=== PATIENT | female | born 1985 | race Caucasian/White ===

== ENCOUNTER 2023-05-28 20:51 | Emergency (ER) | payer OTHER ==
[2023-05-28] MEDS ORDERED: Ketorolac Tromethamine 30 MG/ML VIAL ONE (22:33)
[2023-05-28 23:22] LABS: #Basophils 0.1 thou/uL (0.0-0.2); #Eosinphils 0.1 thou/uL (0.0-0.7); #Monocytes 0.7 thou/uL (0.11-0.59); #Neutrophils 9.9 thou/uL (1.40-6.50); %Basophils 0.7 % (0.0-1.0); %Eosinophils 1.1 % (0.0-10.0); %Lymphocytes 12.5 % (21.0-51.0); %Monocytes 5.3 % (0.0-10.0); Hematocrit 38.5 % (36.0-47.0); Hemoglobin 12.9 g/dL (12.0-16.0); Mean Corpuscular HGB CONC 33.5 g/dL (32.0-36.0); Mean Corpuscular Hemoglobin 31.3 pg (27.0-31.0); Mean Corpuscular Volume 93.4 fl (78.0-98.0); Mean Platelet Volume 9.9 fL (7.4-10.4); Platelet Count 309 10x3/uL (130-400); RBC Distribution Width 12.8 % (11.5-14.5); Red Blood Cell (RBC) Count 4.12 mill/uL (4.20-5.40); White Blood Cell (WBC) Count 12.3 10x3/uL (4.8-10.8)
[2023-05-28 23:32] LABS: BHCG - Serum Negative (NEGATIVE); Pregs Control Background? CLEAR/WHITE (CLR/WHITE); Pregs Control Bar Appear? YES (CONTROL BAR)
[2023-05-28 23:49] LABS: Anion Gap 9 mmol/L (10-20); BUN (Urea Nitrogen) 8 mg/dL (7.0-18.7); Calc. Creatinine Clearance 0 mL/min (70-130); Carbon Dioxide 28 mmol/L (22-29); Chloride 106 mmol/L (98-107); Estimated GFR 105; Glucose 103 mg/dL (70-105); Potassium 3.5 mmol/L (3.5-5.1); Sodium 139 mmol/L (136-145)
[2023-05-29 01:17] LABS: Bacteria/HPF None Seen HPF (None Seen); Bilirubin Negative (Negative); Blood, Urine Negative (Negative); CAUTI Indications for Culture Dysuria,urgency,freq; Clarity Extra Turbid (Clear); Glucose, Urine (Dipstick) Normal (Negative); Ketone, Urine Negative (Negative); Leukocyte Negative Leu/uL (Negative); Nitrite Negative (Negative); Protein, Urine (Dipstick) 70 mg/dL (Neg-Trace); RBC/HPF 0-3 HPF (0-3); Specific Gravity, Urine 1.023 (1.002-1.036); Squamous Epithelial 0-3 HPF (0-3); WBC/HPF 0-3 HPF (0-3)
[2023-05-29 01:21] LABS: Urine Culture Reflex No No
== END 2023-05-29 01:38 | disposition home or self-care (01) ==
LOC: ERS 20:51
DX: K08.89 Other specified disorders of teeth and supporting structures (principal); E86.0 Dehydration; F17.210 Nicotine dependence, cigarettes, uncomplicated
CPT/HCPCS: 36415; 80048; 81001; 83605; 84703; 85025; 96361; 96374; J1885

== ENCOUNTER 2023-09-20 19:57 | Emergency (ER) | payer OTHER | END 2023-09-21 00:29 | disposition home or self-care (01) | LOC: ERS 19:57 | DX: J32.0 Chronic maxillary sinusitis (principal); L29.9 Pruritus, unspecified; F17.210 Nicotine dependence, cigarettes, uncomplicated | CPT/HCPCS: 70450 ==

== ENCOUNTER 2023-10-22 01:46 | Emergency (ER) | payer OTHER ==
[2023-10-22] MEDS ORDERED: Acetaminophen 500 MG TAB ONE (01:55)
[2023-10-22] MEDS ORDERED: Ondansetron PF 4 MG/2 ML Vial ONE (02:15)
[2023-10-22 03:21] LABS: SARS-CoV-2 NAA Rapid Test Not Detected (NotDetected)
[2023-10-22 03:24] LABS: #Basophils 0.1 thou/uL (0.0-0.2); #Eosinphils 0.4 thou/uL (0.0-0.7); #Monocytes 1.1 thou/uL (0.11-0.59); %Basophils 0.6 % (0.0-1.0); %Eosinophils 2.7 % (0.0-10.0); %Lymphocytes 26.5 % (21.0-51.0); %Monocytes 7.3 % (0.0-10.0); %Neutrophils 62.6 % (42.0-75.0); Hematocrit 43.4 % (36.0-47.0); Hemoglobin 14.5 g/dL (12.0-16.0); Mean Corpuscular HGB CONC 33.4 g/dL (32.0-36.0); Mean Corpuscular Hemoglobin 31.3 pg (27.0-31.0); Mean Corpuscular Volume 93.7 fl (78.0-98.0); Mean Platelet Volume 10.8 fL (7.4-10.4); Platelet Count 354 10x3/uL (130-400); RBC Distribution Width 12.3 % (11.5-14.5); Red Blood Cell (RBC) Count 4.63 mill/uL (4.20-5.40); White Blood Cell (WBC) Count 14.5 10x3/uL (4.8-10.8)
[2023-10-22 03:27] LABS: Bacteria/HPF None Seen HPF (None Seen); Bilirubin Negative (Negative); Blood, Urine Negative (Negative); CAUTI Indications for Culture Dysuria,urgency,freq; Clarity Clear (Clear); Glucose, Urine (Dipstick) Normal (Negative); Ketone, Urine Negative (Negative); Leukocyte Negative Leu/uL (Negative); Nitrite Negative (Negative); Protein, Urine (Dipstick) Negative (Neg-Trace); RBC/HPF 0-3 HPF (0-3); Specific Gravity, Urine 1.012 (1.002-1.036); Squamous Epithelial 0-3 HPF (0-3); Urobilinogen Normal mg/dL (Less than 2); WBC/HPF 0-3 HPF (0-3)
[2023-10-22 03:28] LABS: Pregnancy Test - Urine (BHCG) Negative (Negative); Specific Gravity 1.012 (1.002-1.036)
[2023-10-22 03:29] LABS: Pregu Control Background? CLEAR/WHITE (CLR/WHITE); Pregu Control Bar Appear? YES (CONTROL BAR); Urine Culture Reflex No No
[2023-10-22 03:53] LABS: ALT (SGPT) 13 U/L (8-55); AST (SGOT) 12 U/L (5-34); Alkaline Phosphatase 80 U/L (40-110); Anion Gap 11 mmol/L (10-20); BUN (Urea Nitrogen) 10 mg/dL (7.0-18.7); Bilirubin, Total 0.2 mg/dL (0.2-1.2); Calc. Creatinine Clearance 0 mL/min (70-130); Carbon Dioxide 29 mmol/L (22-29); Chloride 103 mmol/L (98-107); Estimated GFR 115; Globulin 2.8 g/dL (2.4-3.5); Glucose 83 mg/dL (70-105); Lipase 40 U/L (8-78); Potassium 3.9 mmol/L (3.5-5.1); Protein, Total 6.8 g/dL (6.0-8.3); Sodium 139 mmol/L (136-145)
== END 2023-10-22 04:22 | disposition home or self-care (01) ==
LOC: ERS 01:46
DX: B34.9 Viral infection, unspecified (principal); R53.83 Other fatigue; D72.829 Elevated white blood cell count, unspecified; I10 Essential (primary) hypertension; F17.210 Nicotine dependence, cigarettes, uncomplicated
CPT/HCPCS: 71045; 80053; 81001; 81025; 83690; 85025; 93005; 96374; J2405

== ENCOUNTER 2024-06-03 20:36 | Emergency (ER) | payer SELFPAY ==
[2024-06-03] MEDS ORDERED: Acetaminophen 500 MG TAB ONE (23:05)
[2024-06-03] MEDS ORDERED: Ondansetron ODT 4 MG TAB ONE ×2 (23:22→23:24)
[2024-06-04] MEDS ORDERED: Albuterol 200 PUFF (6.7GM INHALER) ONE
[2024-06-04] MEDS ORDERED: Amoxicillin/Potassium Clav 875 MG TAB ONE (01:02)
== END 2024-06-04 01:03 | disposition home or self-care (01) ==
LOC: ERS 20:36
DX: J18.9 Pneumonia, unspecified organism (principal); N13.2 Hydronephrosis with renal and ureteral calculous obstruction; Z87.891 Personal history of nicotine dependence
CPT/HCPCS: 74176; Q0162